=== PATIENT | female | born 1955 | race Caucasian/White ===

== ENCOUNTER 2023-02-26 20:22 | Emergency (ER) | payer BC ==
[2023-02-26] MEDS ORDERED: SODIUM CHLORIDE 0.9% 1,000 ML IV STA (21:10)
[2023-02-26] MEDS ORDERED: MORPHINE 10 MG/ML VIAL IVP STA (21:10)
[2023-02-26] MEDS ORDERED: ONDANSETRON 4 MG/2 ML VIAL IVP STA (21:10)
[2023-02-26] MEDS ORDERED: FAMOTIDINE 20 MG/2 ML VIAL IVP STA (21:10)
--- NOTE | 2023-02-26 21:11 | ED Physician Documentation ---
History of Present Illness - Stated complaint Stated Complaint: - Chief complaint Chief Complaint: Abd Pain - History obtained from History obtained from: Patient - Additonal information Additional information: 67yF, previously healthy, p/w urgency, dysuria, and passage of large blood clots with urination today as well as subjective fever with tmax 99.7 at doctor's office today. patient also had one episode of nbnb n/v today. denies diarrhea. also with suprapubic abdominal pain and BL lower back pain. Review of Systems Constitutional: reports: Fever, Chills, Myalgias Cardiac: denies: Chest pain / pressure Respiratory: denies: Dyspnea GI: reports: Abdominal Pain, Nausea, Vomiting. denies: Diarrhea : reports: Dysuria, Hematuria PD PAST MEDICAL HISTORY - Past Medical History Past Medical History: No - Past Surgical History Past Surgical History: Yes General: Appendectomy - Present Medications Home Medications: Ambulatory Orders Medication Instructions Recorded Confirmed Cefpodoxime Proxetil [Vantin] 200 mg PO Q12H #28 tablet 02/26/23 Ondansetron Odt [Zofran Odt] 4 mg TL Q6H PRN #10 tablet 02/26/23 Oxycodone HCl/Acetaminophen 1 each PO Q4H PRN #8 tablet 02/26/23 [Percocet 5-325 mg Tablet] - Allergies Allergies/Adverse Reactions: Allergies Allergy/AdvReac Type Severity Reaction Status Date / Time No Known Drug Allergies Allergy Verified 02/26/23 20:35 - Social History Does the pt smoke?: No Smoking Status: Never smoker Does the pt drink ETOH?: No Does the pt have substance abuse?: No - Immunizations Immunizations are current?: Yes - POLST Patient has POLST: No PD ED PE NORMAL - Vitals Vital signs reviewed: Yes - General General: Alert and oriented X 3, No acute distress, Well developed/nourished - HEENT HEENT: Atraumatic, PERRL, EOMI, Moist mucous membranes, Pharynx benign - Neck Neck: Supple, no meningeal sign - Cardiac Cardiac: RRR - Respiratory Respiratory: No respiratory distress, Clear bilaterally - Abdomen Abdomen: Non tender, Non distended, Other (discomfort to suprapubic region to palpation) - Derm Derm: Normal color, Warm and dry Results - Vitals Vitals: Vital Signs - 24 hr 02/26/23 02/26/23 02/26/23 20:28 20:39 21:10 Temperature 37.0 C 37.0 C Heart Rate 106 H 84 Respiratory 17 22 19 Rate Blood Pressure 174/98 H 139/77 H O2 Saturation 96 98 02/26/23 02/26/23 22:17 23:20 Temperature Heart Rate 68 68 Respiratory 16 18 Rate Blood Pressure 143/77 H 129/60 O2 Saturation 98 99 Oxygen O2 Source Room air - Labs Labs: Laboratory Tests 02/26/23 02/26/23 02/26/23 21:17 21:17 21:50 WBC 12.9 H RBC 4.41 Hgb 13.9 Hct 41.0 MCV 93.0 MCH 31.5 H MCHC 33.9 RDW 12.9 Plt Count 344 MPV 8.8 Neut # (Auto) 10.7 H Lymph # (Auto) 1.6 [place] # (Auto) 0.6 Eos # (Auto) 0.0 Baso # (Auto) 0.0 Absolute Nucleated RBC 0.00 Nucleated RBC % 0.0 Sodium 136 Potassium 3.6 Chloride 101 Carbon Dioxide 25 Anion Gap 10.0 BUN 21 H Creatinine 0.9 Estimated GFR (MDRD) 63 L Glucose 145 H Calcium 10.0 Total Bilirubin 0.3 AST 18 ALT 21 Alkaline Phosphatase 79 Total Protein 7.8 Albumin 4.4 Globulin 3.4 Albumin/Globulin Ratio 1.3 Lipase 20 Urine Color BROWN Urine Clarity CLOUDY Urine pH Ur Specific Margaret Urine Protein Urine Glucose (UA) NEGATIVE Urine Ketones NEGATIVE Urine Occult Blood LARGE H Urine Nitrite Urine Bilirubin NEGATIVE Urine Urobilinogen 0.2 (NORMAL) Ur Leukocyte Esterase NEGATIVE Urine RBC TNTC H Urine WBC 0-3 Ur Squamous Epith Cells NONE SEEN Urine Bacteria None Seen Urine Culture Comments NOT INDICATED PD Medical Decision Making - ED course ED course: 67yF presents to the ED with dysuria, fever, hematuria, and nbnb n/v. likely pyelonephritis versus renal stones versus uterine pathology. plan to eval u/a, cbc, abdominal panel, CT a/p. rectal temp to be taken. if febrile, will add lactic acid and blood cultures. IV zofran, fluids, pepcid, ordered for nausea with improvement. IV morphine ordered for pain with improvement. cbc and abdominal panel significant for leukocytosis wbc 12.9. u/a showed no signs of infection but was unable to detect if there were nitrites due to color interference. urine sent for culture. ct showed free air in the urinary bladder. she has had two doses of bactrim thus far therefore it's possible it resulted in a sterile urine sample. plan to send vantin rx to pharmacy and to manually order urine culture. since the ct appears to have no hydronephrosis and there is a 3mm stone that has already passed into the bladder, she can follow up routinely with urology outpatient with understanding she will need to return for worsening pain, fever >100.4, or new or worsening symptoms. Departure - Departure Disposition: 01 Home, Self Care Clinical Impression: Abdominal pain, Vomiting, Hematuria, Renal stones Condition: Stable Instructions: ED Stone Renal Passed Follow-Up: Magda Alvarado MD [Physician No Access] - Zach Castaneda MD [Provider Admit Priv/Credential] - Prescriptions: Oxycodone HCl/Acetaminophen [Percocet 5-325 mg Tablet] 1 each PO Q4H PRN #8 tablet PRN Reason: Pain >8 Cefpodoxime Proxetil [Vantin] 200 mg PO Q12H #28 tablet Ondansetron Odt [Zofran Odt] 4 mg TL Q6H PRN #10 tablet PRN Reason: Nausea / Vomiting Comments: You were seen in the emergency department for Kidney stones and possible UTI. Please follow-up with urology and return to the emergency department if you have any new or worsening symptoms or other concerns. [facility]. You are getting a prescription for Percocet. Do not use when driving or operating heavy machinery. Dispose of any unused pills at your local police station. This medication may cause constipation. If you are prone to constipation then please take with [id number] sennadocusate and MiraLAX. Forms: PCP List
[2023-02-26 21:23] LABS: BASOPHILS % (AUTO) 0.2 %; EOSINOPHILS % (AUTO) 0.1 %; HGB - HEMOGLOBIN 13.9 g/dL (12.0-16.0); LYMPHOCYTES # (AUTO) 1.6 10^3/uL (1.5-3.5); MEAN CORPUSCULAR HEMOGLOBIN 31.5 pg (27.0-31.0); MEAN CORPUSCULAR HGB CONC 33.9 g/dL (32.0-36.0); MEAN PLATELET VOLUME 8.8 fL (7.9-10.8); MONOCYTES # (AUTO) 0.6 10^3/uL (0.0-1.0); MONOCYTES % (AUTO) 4.4 %; NEUTROPHILS # (AUTO) 10.7 10^3/uL (1.5-6.6); NEUTROPHILS % (AUTO) 82.9 %; PLT - PLATELET COUNT 344 10^3/uL (130-450); RED BLOOD COUNT 4.41 10^6/uL (4.20-5.40); RED CELL DISTRIBUTION WIDTH 12.9 % (12.0-15.0); WHITE BLOOD COUNT 12.9 x10^3/uL (4.8-10.8)
[2023-02-26 21:41] LABS: ALBUMIN 4.4 g/dL (3.2-5.5); ALBUMIN/GLOBULIN RATIO 1.3 (1.0-2.2); BILIRUBIN,TOTAL 0.3 mg/dL (0.2-1.0); CREATININE 0.9 mg/dL (0.6-1.3); POTASSIUM 3.6 mmol/L (3.5-4.5); TOTAL PROTEIN 7.8 g/dL (6.4-8.9)
[2023-02-26] MEDS ORDERED: iohexoL-300 100 ML VIAL IVP ONE (22:55)
[2023-02-26 23:18] LABS: GLUCOSE, URINE (UA) NEGATIVE (NEGATIVE); KETONES,URINE (UA) NEGATIVE (NEGATIVE); LEUKOCYTE ESTERASE, URINE NEGATIVE (NEGATIVE); OCCULT BLOOD,URINE LARGE (NEGATIVE); UROBILINOGEN,URINE 0.2 (NORMAL) E.U./dL (NORMAL)
[2023-02-26 23:22] LABS: CLARITY,URINE CLOUDY (CLEAR)
[2023-02-26 23:23] LABS: BACTERIA,URINE None Seen /HPF (None Seen); BILIRUBIN,URINE NEGATIVE (NEGATIVE); ICTOTEST,URINE NEGATIVE; RBC,URINE TNTC /HPF (0-5); SQUAMOUS EPITHELIAL CELL,UR NONE SEEN (<= Few); WBC,URINE 0-3 /HPF (0-5)
--- NOTE | 2023-02-26 23:35 | CT Report ---
PROCEDURE: ABDOMEN/PELVIS W INDICATIONS: suprapubic/low back pain, n/v, fever, hematuria CONTRAST: Omni 300 100ml TECHNIQUE: After the administration of intravenous contrast, 5 mm thick sections acquired from the diaphragms to the symphysis. 5 mm thick coronal and sagittal reformats were acquired. For radiation dose reducti on, the following was used: automated exposure control, adjustment of mA and/or kV according to len ent size. COMPARISON: None FINDINGS: Visualized lung bases: No pleural effusion. Liver and biliary tree: Several liver cysts are present. No biliary ductal dilation demonstrated. Gallbladder: No radiopaque cholelithiasis. Spleen: Unremarkable. Pancreas: Unremarkable. Adrenal glands: Unremarkable. Kidneys and ureters: No hydronephrosis. Right renal hilar vascular calcifications. Possible punctate nonobstructing stone right upper kidney best visualized on coronal images. Possible delayed enhanceme nt of the left kidney Gastrointestinal tract: No bowel obstruction. Small hiatal hernia diverticulosis without definite jesus dence of acute diverticulitis Peritoneal cavity: No free air or free fluid. Bladder: 3 mm bladder stone present. Small amount of gas present in the bladder lumen Pelvic organs: Unremarkable CT appearance. Vasculature: No abdominal aortic aneurysm. Musculoskeletal: Degenerative change of the spine. IMPRESSION: 1. A 3 mm stone is present in the urinary bladder. 2. Small focus of gas present in the urinary bladder lumen. Correlation with any recent history of ca theterization or instrumentation may be helpful. If not performed recently, correlation with urinalys is to assess for urinary tract infection may be helpful. 3. Possible asymmetric/abnormal left renal enhancement without hydronephrosis visualized. This is a n onspecific finding, could be seen in the setting of pyelonephritis or acute kidney injury or recently passed stone or other etiologies clinical correlation recommended Reviewed by: Chetan Ordaz MD on 02/26/2023 11:33 PM PDT Approved by: Chetan Ordaz MD on 02/26/2023 11:33 PM PDT Station ID: [id number]
[2023-02-26] MEDS ORDERED: oxyCODONE/ACET 5/325 Prepack 4 PO STA (23:58)
[2023-02-26] MEDS ORDERED: ONDANSETRON ODT 4 MG Prepack 2 TL PRN (23:58)
[2023-02-27 00:18] VITALS: BP 120/54; O2SAT 98
== END 2023-02-27 00:13 | disposition home or self-care (01) ==
LOC: ED 20:22
DX: N21.0 Calculus in bladder (principal)
CPT/HCPCS: 36415; 74177; 80053; 81001; 83690; 85025; 87086; 96374; 99283; 99284; Q9967